=== PATIENT | male | born 1995 | race African-American/Black ===

== ENCOUNTER → 2019-09-16 | Outpatient (REF) ==
[2019-09-17 08:11] LABS: HERPES ZOSTER, VARICELLA IgG <135 index (Immune >165); RUBEOLA IgG ANTIBODY >300.0 AU/mL (Immune >16.4)
== END ==
LOC: M LAB 14:03
PROVIDERS: ATTEND Nurse Practitioner Adult Health
DX: Z00.00 Encounter for general adult medical examination without abnormal findings (principal)

== ENCOUNTER → 2024-11-18 | Outpatient (RCR) | LOC: M EMPSKH 10-20 08:11 → EEVIPCON 10-20 08:11 | PROVIDERS: ATTEND Family Medicine | DX: Z11.52 Encounter for screening for COVID-19 (principal) ==